=== PATIENT | female | born 1990 | race Caucasian/White ===

== ENCOUNTER 2018-06-08 10:44 | Emergency (ER) | payer OTHER ==
[~2018-06-08] VITALS: Ht 162.6 cm; Wt 114.8 kg
[2018-06-08 10:44] VITALS: BP 147/82
--- NOTE | 2018-06-08 11:20 | NUR ---
Patient discharged to home in stable condition. Written and verbal after care instructions given. Patient verbalizes understanding of instruction.
== END 2018-06-08 11:24 | disposition home or self-care (01) ==
LOC: ER 10:46
DX: S92.812D Other fracture of left foot, subsequent encounter for fracture with routine healing (principal); R22.42 Localized swelling, mass and lump, left lower limb; E11.9 Type 2 diabetes mellitus without complications; X58.XXXD Exposure to other specified factors, subsequent encounter